=== PATIENT | male | born 1990 | race Caucasian/White ===

== ENCOUNTER 2018-07-05 14:19 | Emergency (ER) | payer SELFPAY ==
[2018-07-05 15:17] VITALS: BP 142/95
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
== END 2018-07-05 17:12 | disposition home or self-care (01) ==
LOC: UCCORT 14:19
DX: S60.222A Contusion of left hand, initial encounter (principal); Y93.83 Activity, rough housing and horseplay; Y92.9 Unspecified place or not applicable; Z87.891 Personal history of nicotine dependence
CPT/HCPCS: 99203; G0463